=== PATIENT | female | born 1950 | race Caucasian/White ===

== ENCOUNTER → 2016-08-08 | Outpatient (CLI) | payer OTHER ==
[2016-08-08 13:10] LABS: BASO % 0.8 %; BASO ABS # 0.06 K/uL (0-0.2); COMPLETE YES; EOS % 2.1 %; HEMATOCRIT 39.3 % (37-47); IG% 0.4 %; LYMPH % 28.4 %; LYMPH ABS # 2.01 K/uL (1.2-3.4); MEAN CELL VOLUME 97.8 fL (80-100); MEAN CORPUSCULAR HEMOGLOBIN 32.6 pg (25-34); MEAN CORPUSCULAR HGB CONC 33.3 g/dl (32-36); MEAN PLATELET VOLUME 9.9 fL (7.4-10.4); NEUT % 56.3 %; PLATELET COUNT 327 K/uL (130-400); RED BLOOD COUNT 4.02 M/uL (4.2-5.4); WHITE BLOOD COUNT 7.07 K/uL (4.8-10.8)
[2016-08-08 13:23] LABS: CHOLESTEROL/HDL RATIO 2.7
== END | disposition home or self-care (01) ==
LOC: C.LABMFLN 07:35
PROVIDERS: ATTEND Family Medicine
DX: E78.5 Hyperlipidemia, unspecified (principal)

== ENCOUNTER → 2016-11-24 | Outpatient (CLI) | payer OTHER ==
--- NOTE | 2016-11-24 09:21 | DIAGNOSTIC IMAGING REPORT ---
LEFT KNEE 4 VIEWS INCLUDING BILATERAL STANDING AP VIEWS CLINICAL HISTORY: CHRONIC LEFT KNEE PAIN COMPARISON: 03/28/2014 DISCUSSION: There are progressive osteoarthritic changes involving the left knee with marked medial joint compartment narrowing. There are small dorsal patellar spurs. There are medial lateral joint compartment spurs. There are no acute fractures. No destructive lesions are visualized. The joint spaces of the right knee remain within normal limits for age on this single standing AP view. IMPRESSION: Significant progression in the osteoarthritic changes of the left knee with marked medial joint compartment narrowing Electronically signed by: Piero Pulliam M.D. 11/24/2016 9:20 AM Dictated Date/Time: 11/24/2016 9:18 AM
== END | disposition home or self-care (01) ==
LOC: C.RDSM 12:17
PROVIDERS: ATTEND Internal Medicine
DX: M25.562 Pain in left knee (principal)

== ENCOUNTER → 2017-02-13 | Outpatient (CLI) | payer OTHER ==
[2017-02-13 12:58] LABS: BLOOD UREA NITROGEN 12 mg/dl (7-18); BUN/CREATININE RATIO 15.7 (10-20); CALCIUM 9.3 mg/dl (8.5-10.1); CARBON DIOXIDE 28 mmol/L (21-32); CHLORIDE 103 mmol/L (98-107); CREATININE 0.76 mg/dl (0.60-1.20); GLUCOSE 102 mg/dl (70-99); POTASSIUM 4.4 mmol/L (3.5-5.1); SODIUM 139 mmol/L (136-145)
[2017-02-13 13:10] LABS: PHOSPHORUS 2.7 mg/dl (2.5-4.9)
== END | disposition home or self-care (01) ==
LOC: C.LABMFLN 08:32
PROVIDERS: ATTEND Family Medicine
DX: K21.9 Gastro-esophageal reflux disease without esophagitis (principal); E03.9 Hypothyroidism, unspecified; Z01.419 Encounter for gynecological examination (general) (routine) without abnormal findings

== ENCOUNTER → 2017-02-13 | Outpatient (CLI) | payer OTHER | END | disposition home or self-care (01) | LOC: C.PAPS 13:05 | PROVIDERS: ATTEND Family Medicine | DX: Z01.419 Encounter for gynecological examination (general) (routine) without abnormal findings (principal) ==

== ENCOUNTER → 2017-08-17 | Outpatient (CLI) | payer OTHER ==
[2017-08-17 12:52] LABS: BASO % 0.4 %; BASO ABS # 0.02 K/uL (0-0.2); EOS % 2.4 %; EOS ABS # 0.12 K/uL (0-0.5); HEMATOCRIT 39.7 % (37-47); HEMOGLOBIN 13.3 g/dL (12.0-16.0); IG# 0.01 K/uL (0.00-0.02); LYMPH % 40.9 %; LYMPH ABS # 2.08 K/uL (1.2-3.4); MEAN CELL VOLUME 95.2 fL (80-100); MEAN CORPUSCULAR HEMOGLOBIN 31.9 pg (25-34); MEAN CORPUSCULAR HGB CONC 33.5 g/dl (32-36); MEAN PLATELET VOLUME 10.6 fL (7.4-10.4); MONO % 11.2 %; MONO ABS # 0.57 K/uL (0.11-0.59); NEUT % 44.9 %; NEUT ABS # 2.29 K/uL (1.4-6.5); PLATELET COUNT 265 K/uL (130-400); RED CELL DISTRIBUTION WIDTH CV 12.8 % (11.5-14.5); RED CELL DISTRIBUTION WIDTH SD 44.2 fL (36.4-46.3); WHITE BLOOD COUNT 5.09 K/uL (4.8-10.8)
== END | disposition home or self-care (01) ==
LOC: C.LABMFLN 07:10
PROVIDERS: ATTEND Family Medicine
DX: K21.9 Gastro-esophageal reflux disease without esophagitis (principal); E78.5 Hyperlipidemia, unspecified

== ENCOUNTER 2018-07-09 06:25 | Inpatient (IN) ==
--- NOTE | 2018-06-15 16:22 | PAT Medication Instructions ---
Medication Instructions Date of Service June 15, 2018 Home Medications escitalopram oxalate 10 mg PO QAM levothyroxine 125 mcg PO QAM meloxicam 15 mg PO QAM PRN multivitamin 1 tab PO QAM omeprazole 40 mg PO QAM [Calcium 500 + D] 1 tab PO BID ASK your surgeon for instructions meloxicam 15 mg PO QAM PRN DO NOT take the morning of surgery multivitamin 1 tab PO QAM [Calcium 500 + D] 1 tab PO BID Take morning of surgery With a small sip of water, OTHERWISE NOTHING TO EAT OR DRINK AFTER MIDNIGHT: escitalopram oxalate 10 mg PO QAM levothyroxine 125 mcg PO QAM omeprazole 40 mg PO QAM Take evening before surgery [Calcium 500 + D] 1 tab PO BID Other Notes If you have any questions please call us at [phone] or [phone] or [phone] or [phone]
--- NOTE | 2018-06-16 12:41 | Anesthesiology Consultation ---
Date of Service June 16, 2018 Assessment & Plan (1) Encounter for pre-operative examination: *POSSIBLE DIFFICULT AIRWAY BASED ON PHYSICAL EXAM AT [facility]* Chart Review Chart Review: Acceptable Risk for Surgery and Patient seen in Pre Admission Testing Teaching & Discussion Instructed NPO after midnight before surgery, except medications with 15 cc of water. Medication instructions provided according to the [facility] guidelines. History Surgery Operation Date: 07/09/18 09:25 Proposed Procedures p Left Total Knee Arthroplasty - Shaw Chi MD Height/Weight Height: 5 ft 5 in Weight: 93 kg Allergies Allergy/AdvReac Type Severity Reaction Status Date / Time No Known Allergies Allergy Verified 06/07/18 07:58 Medications Home Medications Medication Instructions Recorded Confirmed Last Taken atorvastatin 10 mg PO QAM 02/22/18 06/07/18 05/11/18 escitalopram oxalate 10 mg PO QAM 02/22/18 06/07/18 05/11/18 levothyroxine 125 mcg PO QAM 02/22/18 06/07/18 05/11/18 meloxicam 15 mg PO QAM PRN 02/22/18 06/07/18 03/02/18 08:00 multivitamin 1 tab PO QAM 02/22/18 06/07/18 05/11/18 omeprazole 40 mg PO QAM 02/22/18 06/07/18 05/11/18 calcium carbonate-vitamin D3 1 tab PO BID 06/07/18 06/07/18 Unknown [Calcium 500 + D] Past Medical History Medical History Anxiety Depression GERD (gastroesophageal reflux disease) Hyperlipidemia Hypothyroidism Obesity Osteoarthritis Sleep apnea cpap Past Surgical History Surgical History History of cataract surgery both eyes History of colonoscopy History of removal of cyst left foot Hx of eye surgery left for macular retinal hole Past Anesthesia History No Hx of Anesthesia Complications and No Family Hx of Anesthesia Complications *POSSIBLE DIFFICULT AIRWAY BASED ON PHYSICAL EXAM AT [facility]* History of PONV No Motion Sickness Screening History of Motion Sickness: No Social History Smoking Status: Never smoker Do You Dip or Chew Tobacco: No Hx Alcohol Use: Yes Alcohol type: beer and wine alcohol intake frequency: holidays/special occasions only Hx Substance Use: No substance use type: does not use Exercise / Class Metabolic Activity II 4-5 Yardwork/Stairs/Walk up hill (Denies CP or SOB with stairs) Review of Systems Pt denies any recent chest pain, shortness of breath, palpitations, cough, fever or URI. Physical Exam Vital Signs BP: 146/81 (pt recently evaluated by PCP) P: 70 bpm SPO2: 94% RA T: 98.8 F R: 16 ENMT Mouth: + dentures (partial upper), + dental restorations (3 crowns), + macroglossia and + small oral opening; no chipped teeth and no loose teeth Thyromental Distance: < 3.5 Finger Breadths (2? Difficult to assess 2/2 thick ne ck) Mallampati Class: III Neck + thick neck; neck extension not limited Respiratory normal respiratory effort Auscultation: lungs clear to auscultation bilaterally Cardiovascular Rate/Rhythm: regular rate and regular rhythm Heart Sounds: no murmur Vessels: no carotid bruit Extremities: no edema Testing Electrocardiogram Date: 06/16/18 Findings: + NSR @ (70) Chest X-Ray Date: 06/16/18 Findings: + NAD Laboratory Results 06/16/18 13:02 06/16/18 13:10 Blood Type A Positive 06/16/18 13:02 Antibody Screen NEGATIVE 06/16/18 13:02 PT 10.0 Seconds (9.0-12.0) 06/16/18 13:02 INR 1.0 (0.9-1.1) 06/16/18 13:02 APTT 24.2 Seconds (21.0-31.0) 06/16/18 13:02 Hemoglobin A1c 6.0 % (4.5-5.6) H 06/16/18 13:02 Urine Color Yellow 06/16/18 Unknown Urine Appearance Clear (Clear) 06/16/18 Unknown Urine pH 6.0 (4.5-7.5) 06/16/18 Unknown Ur Specific [place] 1.015 (1.000-1.030) 06/16/18 Unknown Urine Protein Negative (Negative) 06/16/18 Unknown Urine Glucose (UA) Negative (Negative) 06/16/18 Unknown Urine Ketones Negative (Negative) 06/16/18 Unknown Urine Nitrite Negative (Negative) 06/16/18 Unknown Ur Leukocyte Esterase Trace (Negative) H 06/16/18 Unknown Urine WBC (Auto) 5-10 /hpf (0-5) H 06/16/18 Unknown Urine RBC (Auto) 0-4 /hpf (0-4) 06/16/18 Unknown U Hyaline Cast (Auto) 0 /lpf (0-5) 06/16/18 Unknown U Epithel Cells (Auto) >30 /lpf (0-5) H 06/16/18 Unknown Urine Bacteria (Auto) Negative (Negative) 06/16/18 Unknown
--- NOTE | 2018-06-16 13:33 | XRay Report ---
XR chest Pre-admission PA/Lat CLINICAL HISTORY: pat preoperative evaluation COMPARISON STUDY: No previous studies for comparison. FINDINGS: The bones soft tissues and hemidiaphragms are normal. The cardiomediastinal silhouette is n ormal. The lungs are clear. The pulmonary vasculature is normal. IMPRESSION: Negative chest. The above report was generated using voice recognition software. It may contain grammatical, syntax or spelling errors. Electronically signed by: Reji Trejo M.D. 06/16/2018 1:32 PM
[2018-06-16 14:24] LABS: White Blood Count 5.47 K/uL (4.8-10.8)
[2018-06-16 14:25] LABS: Basophils # (auto) 0.02 K/uL (0-0.2); Basophils % (auto) 0.4 %; Eosinophils # (auto) 0.09 K/uL (0-0.5); Eosinophils % (auto) 1.6 %; Hematocrit (blood only) 38.5 % (37-47); Hemoglobin 12.6 g/dL (12.0-16.0); Lymphocytes # (auto) 2.19 K/uL (1.2-3.4); Mean Corpuscular Hgb Conc 32.7 g/dL (32-36); Mean Corpuscular Volume 95.3 fL (80-100); Mean Platelet Volume 10.8 fL (7.4-10.4); Monocytes # (auto) 0.55 K/uL (0.11-0.59); Monocytes % (auto) 10.1 %; Neutrophils # (auto) 2.62 K/uL (1.4-6.5); Neutrophils % (auto) 47.9 %; Platelet Count 270 K/uL (130-400); RDW Coefficient of Variation 12.7 % (11.5-14.5); RDW Standard Deviation 44.6 fL (36.4-46.3); Red Blood Count 4.04 M/uL (4.2-5.4)
[2018-06-16 14:33] LABS: Albumin Level 3.6 gm/dl (3.4-5.0); BUN Creatinine Ratio 20.9 (10-20); Calcium 9.2 mg/dl (8.5-10.1); Creatinine Clr Calc Pharmacy 78.7 ml/min; Est GFR (African American) 92.8; Potassium 4.4 mmol/L (3.5-5.1)
[2018-06-16 14:38] LABS: Appearance Urine Clear (Clear); Bacteria Urine Automated Negative (Negative); Bilirubin Urine Negative (Negative); Blood Urine Negative (Negative); Cast Urine Automated 0 /lpf (0-5); Color Urine Yellow; Epithelial Cell Urine Auto >30 /lpf (0-5); Glucose Urine UA Negative (Negative); Ketones Urine Negative (Negative); Leukocyte Esterase Urine Trace (Negative); Nitrite Urine Negative (Negative); Protein Urine Negative (Negative); RBC Urine Automated 0-4 /hpf (0-4); Specific Gravity Urine 1.015 (1.000-1.030); Urobilinogen Urine Negative (Negative)
[2018-06-16 14:40] LABS: Partial Thromboplastin Ratio 0.9; Partial Thromboplastin Time 24.2 Seconds (21.0-31.0)
[2018-06-16 15:11] LABS: Estimated Average Glucose 126 mg/dl
--- NOTE | 2018-07-04 19:16 | History & Physical Report ---
Date of Service July 04, 2018 Assessment & Plan (1) Primary osteoarthritis of left knee: Patient has failed conservative measures as above. Treatment options were discussed. Risks, benefits and alternatives to surgery including but not limited to infection, DVT, pain, stiffness, need for revision surgery, damage to blood vessels, damage to nerves, PE, , were discussed with the patient and they wish to proceed. Plan will be for left total knee arthroplasty. All questions were answered. Plan will be for aspirin 81mg BID x30 days for DVT prophylaxis. She would like to go to [place] upon discharge from the hospital. History of Present Illness Chief Complaint: Left knee pain Primary Care Provider: Jenise Mackay MD 67 year old female with PMHx significant for high cholesterol, GERD, KATHRYN with CPAP, hypothyroidism with complaint of ongoing left knee pain. She has failed conservative measures including NSAIDs, cortisone injection, and most recently hyaluronic acid injections. Her pain is interfering with her daily activities. She would like to proceed with left knee replacement. Patient denies headaches, sweats, fevers, chills, double vision, blurred vision, cough, sore throat, dysphagia, chest pain, sob, wheezing, n/v/d/c, numbness, tingling, fatigue, urinary symptoms, mood disorders. ROS positive for left knee pain and stiffness. Allergies Allergy/AdvReac Type Severity Reaction Status Date / Time No Known Allergies Allergy Verified 06/07/18 07:58 Home Medications Home Medications Medication Instructions Recorded Confirmed Type atorvastatin 10 mg PO QAM 02/22/18 06/07/18 History escitalopram oxalate 10 mg PO QAM 02/22/18 06/07/18 History levothyroxine 125 mcg PO QAM 02/22/18 06/07/18 History meloxicam 15 mg PO QAM PRN 02/22/18 06/07/18 History multivitamin 1 tab PO QAM 02/22/18 06/07/18 History omeprazole 40 mg PO QAM 02/22/18 06/07/18 History calcium carbonate-vitamin D3 1 tab PO BID 06/07/18 06/07/18 History [Calcium 500 + D] Past Med/Surg History Medical History Anxiety Depression GERD (gastroesophageal reflux disease) Hyperlipidemia Hypothyroidism Obesity Osteoarthritis Sleep apnea cpap Surgical History History of cataract surgery both eyes History of colonoscopy History of removal of cyst left foot Hx of eye surgery left for macular retinal hole Social History Preferred Language: Occitan Communication Ability: Effective Beliefs That Will Affect Care: None Current Living Situation: Spouse Other Information That Helps Us Care for You: No Feels Safe at Home: Yes Safety Concerns: Feels Safe At This Time Smoking Status: Never smoker Hx Alcohol Use: Yes Hx Substance Use: No Review of Systems All systems reviewed & are unremarkable except as noted in HPI & below Physical Exam Constitutional: well developed and well nourished; no acute distress Eyes: PERRL, conjunctivae normal, anicteric sclerae ENMT: external ear and nose normal, oropharynx normal Neck: trachea midline, no thyromegaly Respiratory: normal respiratory effort, lungs clear to auscultation Cardiovascular: RRR, no murmur, no edema Musculoskeletal: Left knee: ROM 0-130 with crepitus, tenderness to medial joint line, stable to valgus and varus stress Skin: no rashes, warm and dry Neurologic: patellar DTR's 2+ bilat, sensation intact Psychiatric: A+Ox3, euthymic affect Results & Data Laboratory Results Lab Results 06/16/18 06/16/18 06/16/18 Range/Units 13:02 13:02 13:02 WBC 5.47 (4.8-10.8) K/uL RBC 4.04 L (4.2-5.4) M/uL Hgb 12.6 (12.0-16.0) g/dL Hct 38.5 (37-47) % MCV 95.3 (80-100) fL MCH 31.2 (25-34) pg MCHC 32.7 (32-36) g/dL RDW Std Deviation 44.6 (36.4-46.3) fL RDW Coeff of Lori 12.7 (11.5-14.5) % Plt Count 270 (130-400) K/uL MPV 10.8 H (7.4-10.4) fL Immature Gran % (Auto) 0.0 % Neut % (Auto) 47.9 % Lymph % (Auto) 40.0 % [place] % (Auto) 10.1 % Eos % (Auto) 1.6 % Baso % (Auto) 0.4 % Immature Gran # (Auto) 0.00 (0.00-0.02) K/uL Neut # (Auto) 2.62 (1.4-6.5) K/uL Lymph # (Auto) 2.19 (1.2-3.4) K/uL [place] # (Auto) 0.55 (0.11-0.59) K/uL Eos # (Auto) 0.09 (0-0.5) K/uL Baso # (Auto) 0.02 (0-0.2) K/uL PT 10.0 (9.0-12.0) Seconds INR 1.0 (0.9-1.1) APTT 24.2 (21.0-31.0) Seconds PTT Ratio 0.9 Sodium (136-145) mmol/L Potassium (3.5-5.1) mmol/L Chloride (98-107) mmol/L Carbon Dioxide (21-32) mmol/L Anion Gap (3-11) BUN (7-18) mg/dl Creatinine (0.6-1.2) mg/dl Est Cr Clr Drug Dosing ml/min Est GFR ( Amer) Est GFR (Non-Af Amer) BUN/Creatinine Ratio (10-20) Glucose (70-99) mg/dl Estimat Average Glucose 126 mg/dl Hemoglobin A1c 6.0 H (4.5-5.6) % Calcium (8.5-10.1) mg/dl Albumin (3.4-5.0) gm/dl Urine Color Urine Appearance (Clear) Urine pH (4.5-7.5) Ur Specific [place] (1.000-1.030) Urine Protein (Negative) Urine Glucose (UA) (Negative) Urine Ketones (Negative) Urine Blood (Negative) Urine Nitrite (Negative) Urine Bilirubin (Negative) Urine Urobilinogen (Negative) Ur Leukocyte Esterase (Negative) Urine WBC (Auto) (0-5) /hpf Urine RBC (Auto) (0-4) /hpf U Hyaline Cast (Auto) (0-5) /lpf U Epithel Cells (Auto) (0-5) /lpf Urine Bacteria (Auto) (Negative) Blood Type Antibody Screen 06/16/18 06/16/1806/16/19 Range/Units 13:02 13:10 Unknown WBC (4.8-10.8) K/uL RBC (4.2-5.4) M/uL Hgb (12.0-16.0) g/dL Hct (37-47) % MCV (80-100) fL MCH (25-34) pg MCHC (32-36) g/dL RDW Std Deviation (36.4-46.3) fL RDW Coeff of Lori (11.5-14.5) % Plt Count (130-400) K/uL MPV (7.4-10.4) fL Immature Gran % (Auto) % Neut % (Auto) % Lymph % (Auto) % [place] % (Auto) % Eos % (Auto) % Baso % (Auto) % Immature Gran # (Auto) (0.00-0.02) K/uL Neut # (Auto) (1.4-6.5) K/uL Lymph # (Auto) (1.2-3.4) K/uL [place] # (Auto) (0.11-0.59) K/uL Eos # (Auto) (0-0.5) K/uL Baso # (Auto) (0-0.2) K/uL PT (9.0-12.0) Seconds INR (0.9-1.1) APTT (21.0-31.0) Seconds PTT Ratio Sodium 139 (136-145) mmol/L Potassium 4.4 (3.5-5.1) mmol/L Chloride 107 (98-107) mmol/L Carbon Dioxide 27 (21-32) mmol/L Anion Gap 5.0 (3-11) BUN 16 (7-18) mg/dl Creatinine 0.76 (0.6-1.2) mg/dl Est Cr Clr Drug Dosing 78.7 ml/min Est GFR ( Amer) 92.8 Est GFR (Non-Af Amer) 80.0 BUN/Creatinine Ratio 20.9 H (10-20) Glucose 119 H (70-99) mg/dl Estimat Average Glucose mg/dl Hemoglobin A1c (4.5-5.6) % Calcium 9.2 (8.5-10.1) mg/dl Albumin 3.6 (3.4-5.0) gm/dl Urine Color Yellow Urine Appearance Clear (Clear) Urine pH 6.0 (4.5-7.5) Ur Specific [place] 1.015 (1.000-1.030) Urine Protein Negative (Negative) Urine Glucose (UA) Negative (Negative) Urine Ketones Negative (Negative) Urine Blood Negative (Negative) Urine Nitrite Negative (Negative) Urine Bilirubin Negative (Negative) Urine Urobilinogen Negative (Negative) Ur Leukocyte Esterase Trace H (Negative) Urine WBC (Auto) 5-10 H (0-5) /hpf Urine RBC (Auto) 0-4 (0-4) /hpf U Hyaline Cast (Auto) 0 (0-5) /lpf U Epithel Cells (Auto) >30 H (0-5) /lpf Urine Bacteria (Auto) Negative (Negative) Blood Type A Positive Antibody Screen NEGATIVE Diagnostic Findings Left knee radiographs: Essentially [id number] medial compartment with osteophyte formation medial femoral condyle and medial tibial plateau. Joint space narrowing and spurring patellofemoral joint.
[~2018-07-09 06:25] MED LIST: ACETAMINOPHEN 500 MG TAB PO SCH; CEFAZOLIN 2000MG 2,000 MG/15 ML SYR IV SCH; CeleBREX 200 MG CAP PO SCH; GABAPENTIN 300 MG PO SCH; LR 500ML BOLUS, THEN 15ML/HR IV SCH; METOCLOPRAMIDE HCL 10 MG TABLET PO SCH; OXYCODONE HCL 10 MG TABCR (OXYCONTIN) PO SCH; ROPIVACAINE 0.5% HCL/PF 150 MG, BUPIVACAINE 0.5% MPF 30 ML, EPINEPHrine 30MG/30ML (OR U... INFIL SCH; TRAMADOL HCL 50 MG TABLET PO SCH; TRANEXAMIC ACID 1,000 MG **IV Pre-op IV SCH; dexAMETHasone 4 MG TAB PO SCH
[2018-07-09] MEDS ORDERED: TRANEXAMIC ACID 1,000 MG **IV Intra-op IV SCH (06:30)
--- NOTE | 2018-07-09 06:40 | History & Physical Bridge Note ---
Date of Service July 09, 2018 History & Physical Bridge Note I have examined the patient, reviewed the History & Physical and in the interval since the performance of the History & Physical I have noted the following changes of clinical significance: no changes noted
[2018-07-09] MEDS ORDERED: ROPIVACAINE 0.5% 5 MG/ML 30 ML VIAL ONE (07:16)
[2018-07-09] MEDS ORDERED: BUPIVACAINE 0.5 % 5 MG/1 ML PF 10ML VIAL ONE (07:16)
[2018-07-09] MEDS ORDERED: ACETAMINOPHEN 500 MG TAB ONE (07:26)
[2018-07-09] MEDS ORDERED: GABAPENTIN 300 MG CAP ONE (07:27)
[2018-07-09] MEDS ORDERED: CeleBREX 200 MG CAP ONE (07:27)
[2018-07-09] MEDS ORDERED: dexAMETHasone 4 MG TAB PO ONE (07:27)
[2018-07-09] MEDS ORDERED: METOCLOPRAMIDE HCL 10 MG TABLET ONE (07:28)
[2018-07-09] MEDS ORDERED: TRAMADOL HCL 50 MG TABLET ONE (07:28)
[2018-07-09] MEDS ORDERED: OXYCODONE HCL 10 MG TABCR (OXYCONTIN) ONE (07:29)
[2018-07-09] MEDS ORDERED: PROPOFOL IV EMULSION 10 MG/ML 20 ML VIAL IV ONE (07:57)
[2018-07-09] MEDS ORDERED: MIDAZOLAM HCL 1 MG/ML 2ML VIAL ONE (07:58)
[2018-07-09] MEDS ORDERED: fentaNYL citrate 100 MCG/2 ML VIAL ONE (07:58)
[2018-07-09] MEDS ORDERED: POVIDONE-IODINE OP SOLN 30 ML BTL ONE (09:38)
[2018-07-09] MEDS ORDERED: BACITRACIN INJ 50,000 UNIT VIAL ONE (09:38)
--- NOTE | 2018-07-09 11:01 | Operative Report ---
Post Operative Report Pre & Post Diagnosis Operation Date: 07/09/18 09:10 Pre-Op Diagnosis: Left Knee Osteoarthritis Post-Op Diagnosis: Left Knee Osteoarthritis Procedure Operation Date: 07/09/18 09:10 Actual Procedures p Left Total Knee Arthroplasty(Left) - Shaw Chi MD Surgeon Shaw Chi MD Wan Support Specialist Lupillo Maradiaga PA-C Estimated Blood Loss 20 Findings Consistent with Post-Op Diagnosis Specimens Bone and tissue Drains 2 Hemovac Anesthesia Type Spinal MAC Complications none Disposition Accompanied Patient To Recovery: No Disposition: Recovery Room Indications The patient is a 67-year-old female long-standing arthritic change of the left knee. She has failed conservative measures including injection, anti- inflammatories, rehab. She wishes to proceed with a left total knee arthroplasty. Description of Procedure Risks benefits and alternatives of surgery including but not limited to infection, DVT, pain, stiffness, need for surgery, damage to blood vessels, damage to nerves or risks of anesthesia were discussed with the patient and they wished to proceed. The patient was identified and the laterality was confirmed and marked. They received a preoperative antibiotic as well as a spinal anesthetic and an abductor canal block. A well-padded tourniquet was applied and then the limb was prepped and draped in standard manner with ChloraPrep. The limb was exsanguinated and the tourniquet was inflated. I made a standard anterior incision. I sharply incised the skin then utilized Bovie electrocautery to achieve hemostasis. I made a medial parapatellar arthrotomy and mobilized the patella laterally. I then excised the anterior horns of the medial and lateral meniscus as well as the infrapatellar fat pad. I elevated a portion of the MCL off of the tibia. I then pinned into place a patient-matched distal femoral cutting guide and made my distal femoral resection. I then pinned into place the 5 in 1 femoral cutting guide. I made my anterior, posterior and chamfer cuts. I then excised the cruciates and the remaining portions of the menisci. I then pinned into place a patient-matched tibial cutting guide and made my tibial resection. I then pinned into place the tibial plate a utilizing alignment jina to confirm rotation. I then cut for the post. Utilizing a lamina patron attendant and I then removed posterior osteophytes off the femur. I then placed a trial femur into position and cut for the trochlear component. I then sequentially trialed to size the polyethylene until there was good soft tissue balancing and range of motion. I then prepared the patella with a freehand cut utilizing sagittal saw. I sized and drilled for the patella. There was some lateral tracking of the patella. A small lateral release was required. All the trial components were removed. The deep tissues were anesthetized with an ortho mix solution. Then with Simplex HV with gentamicin cement, I cemented my definitive components. Definitive components, Rosenbaum and Nephew Ryan 2: Femur 5 Tibia 4 Poly 9 Patella 32 oval A betadine soak was performed. A deep drain was placed. The arthrotomy was closed with interrupted #1 Vicryl suture subcutaneous tissue was closed with interrupted 2-0 Vicryl suture. The skin was closed with with hunter. An Acticoat and Rashad dressing were placed. Sterile dressings were applied. All needle and sponge counts were correct at the end of the procedure patient was transferred to the PACU in stable condition without apparent complication. The PA-C was necessary for assistance with procedure for assistance in positioning, prepping, draping, retraction and closure. I attest to the content of the Intraoperative Record and any orders documented therein. Any exceptions are noted below.
[2018-07-09] MEDS ORDERED: MAGNESIUM HYDROXIDE SUSP 30 ML UDC PO PRN (11:52)
[2018-07-09] MEDS ORDERED: NALOXONE HCL 0.4 MG/1 ML VIAL/CARP IV PRN (11:52)
[2018-07-09] MEDS ORDERED: ONDANSETRON INJ 2 MG/ML 2 ML VIAL IV PRN (11:52)
[2018-07-09] MEDS ORDERED: BISACODYL 10 MG SUPP PR PRN (11:52)
[2018-07-09] MEDS ORDERED: METOCLOPRAMIDE HCL INJ 5 MG/ML 2 ML VIAL IV PRN (11:52)
[2018-07-09] MEDS ORDERED: HYDROmorphone INJ 0.5 MG/0.5 ML SYR IV PRN (11:52)
--- NOTE | 2018-07-09 12:26 | XRay Report ---
XR knee LT 2V routine CLINICAL HISTORY: Surgical Post Op postoperative evaluation COMPARISON: None. DISCUSSION: Anatomic alignment post total left knee arthroplasty. Good contact between prosthetic and underlying bone. Expected soft tissue postoperative change. IMPRESSION: Anatomic alignment post total left knee arthroplasty. The above report was generated using voice recognition software. It may contain grammatical, syntax or spelling errors. Electronically signed by: Reji Trejo M.D. 07/09/2018 12:25 PM
--- NOTE | 2018-07-09 12:30 | Anesthesiology Progress Note ---
Date of Service July 09, 2018 Anesthesia Post Procedure Vital Signs Vital Signs: Temp Pulse Pulse Resp BP Pulse Ox 07/09/18 12:19 37.3 C 93 H 22 140/76 98 07/09/18 12:10 97 H 17 148/71 H 96 07/09/18 12:00 95 H 17 145/69 H 95 07/09/18 11:50 37.6 C H 102 H 18 161/76 H 95 07/09/18 06:50 36.9 C 78 16 181/109 H 96 Notes Mental Status: alert / awake / arousable and participated in evaluation Nausea / Vomiting: adequately controlled Pain: adequately controlled Airway Patency, RR, SpO2: stable & adequate BP & HR: stable & adequate Hydration State: stable & adequate Neuraxial Anesthesia: was administered and sensory block is resolving Anesthetic Complications: no major complications apparent
[2018-07-09] MEDS: SODIUM CHLORIDE 0.9% 1000ML 1,000 ML IV SCH ×2 (13:11→22:45)
[2018-07-09] MEDS: ACETAMINOPHEN 500 MG TAB PO SCH (16:07)
[2018-07-09] MEDS: OXYCODONE HCL IR 5 MG TAB (IMMEDIATE RELEASE) PO PRN ×2 (17:59→22:13)
[2018-07-09] MEDS: CEFAZOLIN 2000MG 2,000 MG/15 ML SYR IV SCH (18:00)
[2018-07-09] MEDS: CeleBREX 200 MG CAP PO SCH (21:00)
[2018-07-09] MEDS: CALCIUM 600MG + VIT D 400 IU TAB PO SCH (21:00)
[2018-07-09] MEDS: SENNA 8.6 MG TAB PO SCH (21:00)
[2018-07-09] MEDS: ASPIRIN 81 MG ECTAB PO SCH (21:00)
[2018-07-09] MEDS: DOCUSATE SODIUM 100 MG CAP PO SCH (21:01)
[2018-07-10] MEDS: CEFAZOLIN 2000MG 2,000 MG/15 ML SYR IV SCH (01:46)
[2018-07-10] MEDS: ACETAMINOPHEN 500 MG TAB PO SCH ×3 (05:48→22:08)
[2018-07-10] MEDS: LEVOTHYROXINE SODIUM 125 MCG TABLET PO SCH (05:48)
[2018-07-10 06:02] LABS: Hematocrit (blood only) 31.5 % (37-47); Hemoglobin 10.6 g/dL (12.0-16.0); Mean Corpuscular Hgb Conc 33.7 g/dL (32-36); Mean Corpuscular Volume 94.3 fL (80-100); Platelet Count 236 K/uL (130-400); RDW Coefficient of Variation 12.6 % (11.5-14.5); RDW Standard Deviation 43.6 fL (36.4-46.3); Red Blood Count 3.34 M/uL (4.2-5.4); White Blood Count 16.01 K/uL (4.8-10.8)
[2018-07-10 06:33] LABS: BUN Creatinine Ratio 30.4 (10-20); Calcium 8.9 mg/dl (8.5-10.1); Creatinine Clr Calc Pharmacy 83.1 ml/min; Est GFR (Non-African American) 85.4; Potassium 3.9 mmol/L (3.5-5.1)
--- NOTE | 2018-07-10 08:25 | Orthopedic Progress Note ---
Date of Service July 10, 2018 Assessment & Plan (1) Primary osteoarthritis of left knee: POD #1, Left TKA PT/ OT D/C planning- [facility] likely Thursday. DVT proph- ASA Subjective POD #1, doing well, denies sob, cp, n/v, pain controlled well. Physical Exam Vital Signs (Past 24 Hours): Last Vital Signs Temp 36.9 C 07/10/18 07:09 Pulse 72 07/10/18 07:09 Resp 18 07/10/18 07:09 BP 149/71 H 07/10/18 07:09 Pulse Ox 94 07/10/18 07:09 Physical Exam: LEft knee dressings c/d/i, no drainage, toes and ankle mobile, no calf tenderness, A&Ox3.
[2018-07-10] MEDS: OXYCODONE HCL IR 5 MG TAB (IMMEDIATE RELEASE) PO PRN ×4 (08:57→23:11)
[2018-07-10] MEDS: LISINOPRIL 5 MG TAB PO SCH (08:58)
[2018-07-10] MEDS: ESCITALOPRAM OXALATE 10 MG TAB PO SCH (08:58)
[2018-07-10] MEDS: ATORVASTATIN 10 MG TAB PO SCH (08:58)
[2018-07-10] MEDS: CeleBREX 200 MG CAP PO SCH ×2 (08:58→20:53)
[2018-07-10] MEDS: PANTOprazole 40 MG TAB PO SCH (08:58)
[2018-07-10] MEDS: MULTIVITAMIN TAB PO SCH (08:59)
[2018-07-10] MEDS: DOCUSATE SODIUM 100 MG CAP PO SCH ×2 (08:59→20:53)
[2018-07-10] MEDS: CALCIUM 600MG + VIT D 400 IU TAB PO SCH ×2 (08:59→20:53)
[2018-07-10] MEDS: ASPIRIN 81 MG ECTAB PO SCH ×2 (08:59→20:52)
[2018-07-10] MEDS ORDERED: MULTIVITAMIN TAB PO SCH (09:00)
--- NOTE | 2018-07-10 13:24 | Anesthesiology Progress Note ---
Date of Service July 10, 2018 Anesthesia Post Procedure Vital Signs Vital Signs: Temp Pulse Resp BP Pulse Ox 07/10/18 10:51 37.1 C 69 18 158/72 H 98 07/10/18 07:09 36.9 C 72 18 149/71 H 94 07/10/18 03:50 36.6 C 81 15 128/64 95 07/09/18 23:39 36.7 C 71 16 136/70 96 07/09/18 15:44 36.7 C 88 16 151/78 H 94 07/09/18 14:53 92 H 18 160/87 H 95 07/09/18 13:36 36.7 C 105 H 18 157/83 H 93 Pain Intensity Left Knee: Pain Intensity: 2 Notes Mental Status: alert / awake / arousable Patient Amnestic to Procedure: Yes Nausea / Vomiting: adequately controlled Pain: adequately controlled Airway Patency, RR, SpO2: stable & adequate BP & HR: stable & adequate Hydration State: stable & adequate Neuraxial Anesthesia: was administered and sensory block resolved Anesthetic Complications: no major complications apparent and Pt Satisfied with anesthetic care
[2018-07-10] MEDS: SENNA 8.6 MG TAB PO SCH (20:53)
[2018-07-11] MEDS: ACETAMINOPHEN 500 MG TAB PO SCH ×3 (05:35→21:24)
[2018-07-11] MEDS: LEVOTHYROXINE SODIUM 125 MCG TABLET PO SCH (05:35)
[2018-07-11] MEDS: OXYCODONE HCL IR 5 MG TAB (IMMEDIATE RELEASE) PO PRN ×4 (08:24→23:32)
[2018-07-11] MEDS: DOCUSATE SODIUM 100 MG CAP PO SCH ×2 (08:25→20:51)
[2018-07-11] MEDS: CALCIUM 600MG + VIT D 400 IU TAB PO SCH ×2 (08:25→20:51)
[2018-07-11] MEDS: PANTOprazole 40 MG TAB PO SCH (08:25)
[2018-07-11] MEDS: MULTIVITAMIN TAB PO SCH (08:25)
[2018-07-11] MEDS: ESCITALOPRAM OXALATE 10 MG TAB PO SCH (08:25)
[2018-07-11] MEDS: ATORVASTATIN 10 MG TAB PO SCH (08:26)
[2018-07-11] MEDS: LISINOPRIL 5 MG TAB PO SCH (08:26)
[2018-07-11] MEDS: CeleBREX 200 MG CAP PO SCH ×2 (08:26→20:51)
[2018-07-11] MEDS: ASPIRIN 81 MG ECTAB PO SCH ×2 (08:26→20:51)
--- NOTE | 2018-07-11 08:30 | Orthopedic Progress Note ---
Date of Service July 11, 2018 Assessment & Plan (1) Primary osteoarthritis of left knee: POD #2, Left TKA PT/ OT D/C planning- [place] likely Thursday. DVT proph- ASA Uncontrolled hypertension- will consult medicine to adjust BP meds Subjective POD #2, doing well, denies sob, cp, n/v, pain controlled well. BP been running high Physical Exam Vital Signs (Past 24 Hours): Last Vital Signs Temp 37.0 C 07/11/18 07:09 Pulse 77 07/11/18 07:09 Resp 14 07/11/18 07:09 BP 167/79 H 07/11/18 07:09 Pulse Ox 93 07/11/18 07:09 Physical Exam: Left knee wound vac in tact, toes and ankle mobile, no calf tenderness, no drainage, A&Ox3.
--- NOTE | 2018-07-11 10:54 | Consultation ---
Date of Consultation July 11, 2018 Assessment & Plan (1) Essential (primary) hypertension: Patient had pre-HTN for several years, then was finally placed on BP meds about 3-4 weeks ago by her PCP. She states office readings were in the 160s. I believe she is simply not on enough BP meds given the low dose of the KADIE. Will increase the lisinopril to 10mg now and follow her response. Suspect she will likely need further dose adjustments and/or a second agent. Present on Admission?: Yes (2) Hypothyroidism: Continue synthroid. Consider TSH in am. Present on Admission?: Yes (3) Acute blood loss anemia: Mild - 2 gram drop from baseline. Consider ferrous sulfate supplementation. Repeat H/H in am. Present on Admission?: Yes (4) Prediabetes: a1c 6%. will ask dietary to see to give nutritional information prior to d/c. (5) KATHRYN (obstructive sleep apnea): cont CPAP HS (6) Mixed hyperlipidemia: continue statin therapy (7) Obesity (BMI 30-39.9): BMI 34 weight loss is needed hopefully with her knee being fixed she can be more active (8) Abnormal EKG: LVH by voltage criteria present. 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 due to long-standing KATHRYN?? I recommended outpatient echo to assess her cardiac function, chamber sizes, etc. (9) DVT prophylaxis: asa 81mg BID Thank you for the consult. Our team will follow with you. History of Present Illness Reason for Consultation: uncontrolled HTN Requesting Physician: Shaw Chi MD Attending Physician: Shaw Chi MD History of Present Illness Pleasant 67yo female with newly diagnosed HTN about 1 month ago - on BP meds since then - along with hypothyroidism, KATHRYN on CPAP, and hyperlipidemia - who presented for elective left TKR earlier this stay. She has been recovering well and has had a rather unremarkable post-op course. Her course has been marked by uncontrolled HTN however. She does report pain in her left knee especially with activity. Denies chest pain, dyspnea, abd pain, nausea, or emesis. Has had bowel movement and is passing flatus. Complaint with CPAP during the stay. Allergies Allergy/AdvReac Type Severity Reaction Status Date / Time No Known Allergies Allergy Verified 07/09/18 06:47 Home Medications Home Medications Medication Instructions Recorded Confirmed Type atorvastatin 10 mg PO QAM 02/22/18 07/09/18 History escitalopram oxalate 10 mg PO QAM 02/22/18 07/09/18 History levothyroxine 125 mcg PO QAM 02/22/18 07/09/18 History meloxicam 15 mg PO QAM PRN 02/22/18 07/09/18 History multivitamin 1 tab PO QAM 02/22/18 07/09/18 History omeprazole 40 mg PO QAM 02/22/18 07/09/18 History calcium carbonate-vitamin D3 1 tab PO BID 06/07/18 07/09/18 History [Calcium 500 + D] lisinopril 5 mg PO QAM 07/06/18 07/09/18 History Patient History Medical History Anxiety Depression GERD (gastroesophageal reflux disease) Hyperlipidemia Hypothyroidism Obesity Osteoarthritis Sleep apnea cpap Surgical History History of cataract surgery both eyes History of colonoscopy History of removal of cyst left foot Hx of eye surgery left for macular retinal hole Social History Communication Ability: Effective Beliefs That Will Affect Care: None marital status: marital status details: 2 children Current Living Situation: Spouse current occupational status: retired Other Information That Helps Us Care for You: No other: bilingual secretary for [employer] Feels Safe at Home: Yes Safety Concerns: Feels Safe At This Time Smoking Status: Never smoker Hx Alcohol Use: Yes Hx Substance Use: No Review of Systems Constitutional: no fever, no chills, no fatigue, no anorexia, no weight loss and no weight gain Eyes: no worsening vision Ear, Nose, Mouth, Throat: no nasal congestion, no sore throat and no dysphagia Respiratory: no cough and no dyspnea Cardiovascular: no chest pain Gastrointestinal: no abdominal pain, no nausea, no vomiting and no constipation Genitourinary (Female): no dysuria Musculoskeletal: + joint pain (left knee only) Integumentary: no rash Neurologic: no paralysis and no numbness Psychiatric: no depression and no anxiety denies diabetes Hematologic / Lymphatic: no easy bleeding Physical Exam Vital Signs (Past 24 Hours): Last Vital Signs Temp 37.0 C 07/11/18 07:09 Pulse 77 07/11/18 07:09 Resp 14 07/11/18 07:09 BP 167/79 H 07/11/18 07:09 Pulse Ox 93 07/11/18 07:09 Constitutional: well developed, well nourished and + obese; no acute distress and no altered mental status Eyes: PERRL ENMT: external ear and nose normal, oropharynx normal Neck: trachea midline, no thyromegaly Respiratory: normal respiratory effort, lungs clear to auscultation Cardiovascular: Rate/Rhythm: regular rate and regular rhythm Heart Sounds: normal S1 and normal S2; no murmur Vessels: posterior tibial pulses present and dorsalis pedis pulses present; no JVD Extremities: + pedal edema (1+ left foot; none on right) Gastrointestinal (Abdomen): normal bowel sounds, soft, nontender, no hepatosplenomegaly Musculoskeletal: left knee with moderate swelling; dressings intact; drain in place Skin: no rashes, warm and dry Neurologic: deep tendon reflexes 2+ bilaterally and moves all extremities; no focal motor deficits Psychiatric: A+Ox3, euthymic affect Lymphatic: no cervical lymphadenopathy Results & Data Laboratory Results Creatinine 0.7 on 07/10/18 Hemoglobin 10.6 on 07/10/18 hemoglobin a1c 6% 06/16/18 Diagnostic Findings EKG - NSR, LVH, large R wave V1 (RVH??); normal axis however (1) Hypothyroidism Hypothyroidism type: acquired Qualified Code(s): E03.9 - Hypothyroidism, unspecified
[2018-07-11] MEDS ORDERED: LISINOPRIL 5 MG TAB PO ONE (11:20)
[2018-07-11] MEDS: SENNA 8.6 MG TAB PO SCH (20:51)
[2018-07-12] MEDS: ACETAMINOPHEN 500 MG TAB PO SCH (05:43)
[2018-07-12] MEDS: LEVOTHYROXINE SODIUM 125 MCG TABLET PO SCH (05:43)
[2018-07-12 05:48] LABS: Hematocrit (blood only) 30.2 % (37-47); Hemoglobin 9.9 g/dL (12.0-16.0)
[2018-07-12 06:17] LABS: BUN Creatinine Ratio 20.6 (10-20); Calcium 8.7 mg/dl (8.5-10.1); Creatinine Clr Calc Pharmacy 80.9 ml/min; Est GFR (African American) 95.8; Est GFR (Non-African American) 82.7
--- NOTE | 2018-07-12 07:15 | Orthopedic Progress Note ---
Date of Service July 12, 2018 Assessment & Plan (1) Primary osteoarthritis of left knee: POD #3, Left TKA PT/ OT D/C planning- [place] likely today if okay with medicine. DVT proph- ASA Uncontrolled hypertension-medicine consulted. Lisinopril increased to 10mg, may need a second agent per medicine. Subjective POD #3, doing well, denies sob, cp, n/v, pain controlled well. BP been running high. Lisinopril was increased to 10mg yesterday, may need a second agent per medicine. Physical Exam Vital Signs (Past 24 Hours): Last Vital Signs Temp 36.7 C 07/12/18 06:57 Pulse 74 07/12/18 06:57 Resp 18 07/12/18 06:57 BP 180/78 H 07/12/18 06:57 Pulse Ox 96 07/12/18 06:57 Physical Exam: FATIMAH in place, c/d/i. No calf tenderness. Toes are mobile. N/V status and sensation intact
[2018-07-12] MEDS: ASPIRIN 81 MG ECTAB PO SCH (08:31)
[2018-07-12] MEDS: CeleBREX 200 MG CAP PO SCH (08:31)
[2018-07-12] MEDS: CALCIUM 600MG + VIT D 400 IU TAB PO SCH (08:31)
[2018-07-12] MEDS: PANTOprazole 40 MG TAB PO SCH (08:31)
[2018-07-12] MEDS: ESCITALOPRAM OXALATE 10 MG TAB PO SCH (08:31)
[2018-07-12] MEDS: ATORVASTATIN 10 MG TAB PO SCH (08:31)
[2018-07-12] MEDS: DOCUSATE SODIUM 100 MG CAP PO SCH (08:31)
[2018-07-12] MEDS: OXYCODONE HCL IR 5 MG TAB (IMMEDIATE RELEASE) PO PRN ×2 (08:33→12:15)
[2018-07-12] MEDS ORDERED: LISINOPRIL 10 MG TAB PO SCH (09:00)
[2018-07-12] MEDS ORDERED: hydroCHLOROthiazide 25 MG TAB PO SCH (09:15)
[2018-07-12] MEDS: MULTIVITAMIN TAB PO SCH (09:36)
--- NOTE | 2018-07-12 10:22 | Hospitalist Progress Note ---
Date of Service July 12, 2018 Assessment & Plan (1) Primary osteoarthritis of left knee: - S/p right TKA, POD#3. - Pain control and DVT ppx per primary team. - Discharge to [place] this afternoon. (2) Essential (primary) hypertension: - Pt. was placed on Lisinopril 5 mg daily by PCP ~1 month ago. - BP has remained elevated during this admission -- SBP 160-180's. - Increased Lisinopril to 10 mg daily on 07/11/18 with minimal improvement. - Will add low dose HCTZ 12.5 mg daily prior to discharge. - Will need BMP to monitor renal function and electrolytes in 5-7 days -- added to discharge instructions. (3) Hypothyroidism: - Continue Synthroid 125 mcg daily. - TSH was WNL during this admission. (4) Acute blood loss anemia: - Likely related to post op bleeding and IV fluids. - Hemoglobin decreased to 9.9 this morning. - Consider monitoring level as outpatient. (5) Prediabetes: - Hgb A1C was 6%. - Dietary consulted for nutritional information. - Encouraged weight loss and exercise. (6) KATHRYN (obstructive sleep apnea): - CPAP qhs. (7) Mixed hyperlipidemia: - Continue atorvastatin 10 mg qAM. (8) Obesity (BMI 30-39.9): - BMI 34 - Encouraged physical activity, weight loss and healthy diet. (9) Abnormal EKG: - LVH by voltage criteria present; also with large R wave in V1 -- concern for RVH. - Will need outpatient echo to asses cardiac function. (10) DVT prophylaxis: - Aspirin 81 mg BID. Dispo: Will sign off. Pt. stable for discharge to [place] this afternoon. Supervising Physician Co-Signing Physician Notes PA Supervision Note: I personally saw and examined the patient. I verified all dougherty points and agree with KRISTINA Garcia with the following exceptions and/or additions: Pt doing very well. No LYNN, lightheadedness, no CP or SOB, no nausea, is nury po. Pain controlled in knee. BPs running high. Vitals reviewed NAD AAOx3 RRR no mgr CTAB no wcr Ext no edema 67 yo female here for R TKA with HTN uncontrolled. Add on HCTZ 12.5mg daily as above, f/u BMP 5-7 days. Stable from medical standpoint for dc Subjective Pt. is doing well overall today. Has mild pain in right knee. Denies chest pain, SOB, LE edema, urinary retention or constipation. Will be discharged to [place] today. Discussed HTN management -- pt. states she was recently diagnosed with HTN but did not have any issues with BP control in the past. Will need to follow up with PCP as outpatient. Review of Systems All systems reviewed & are unremarkable except as noted in HPI & below Constitutional: no fever, no chills, no fatigue and no weakness Respiratory: no cough and no dyspnea Cardiovascular: no chest pain, no palpitations, no syncope and no edema Gastrointestinal: no abdominal pain, no nausea, no vomiting and no constipation Genitourinary (Female): no dysuria and no difficulty urinating Musculoskeletal: + joint pain (Right knee ) Integumentary: no new lesions Neurologic: no headache(s) Physical Exam Vital Signs (Past 24 Hours): Last Vital Signs Temp 36.7 C 07/12/18 06:57 Pulse 74 07/12/18 06:57 Resp 18 07/12/18 06:57 BP 180/78 H 07/12/18 06:57 Pulse Ox 96 07/12/18 06:57 Physical Exam: General: Resting comfortably in no apparent distress HEENT: NC/AT; PERRLA with EOMI; [place] conjunctiva, MMM. Neck: Supple and nontender Cardiac: RRR Lungs: CTA bilaterally; No rhonchi, wheezing, or rales Abdomen: Bowel normoactive X 4; Nontender to palpation Extremities: Warm. No edema present. Right knee with dressing in place. Neuro: No focal weakness Skin: No rash Results & Data Laboratory Results 07/12/18 07/12/18 Range/Units 05:22 05:22 Hgb 9.9 L (12.0-16.0) g/dL Hct 30.2 L (37-47) % Sodium 139 (136-145) mmol/L Potassium 4.0 (3.5-5.1) mmol/L Chloride 106 (98-107) mmol/L Carbon Dioxide 29 (21-32) mmol/L Anion Gap 4.0 (3-11) BUN 15 (7-18) mg/dl Creatinine 0.74 (0.6-1.2) mg/dl Est Cr Clr Drug Dosing 80.9 ml/min Est GFR ( Amer) 95.8 Est GFR (Non-Af Amer) 82.7 BUN/Creatinine Ratio 20.6 H (10-20) Glucose 98 (70-99) mg/dl Calcium 8.7 (8.5-10.1) mg/dl TSH 2.000 (0.300-4.500) uIu/ml (1) Hypothyroidism Hypothyroidism type: acquired Qualified Code(s): E03.9 - Hypothyroidism, unspecified
--- NOTE | 2018-07-13 07:11 | Discharge Summary ---
Date of Service July 13, 2018 Admission HPI Per Admitting Provider 67 year old female with PMHx significant for high cholesterol, GERD, KATHRYN with CPAP, hypothyroidism with complaint of ongoing left knee pain. She has failed conservative measures including NSAIDs, cortisone injection, and most recently hyaluronic acid injections. Her pain is interfering with her daily activities. She would like to proceed with left knee replacement. Patient denies headaches, sweats, fevers, chills, double vision, blurred vision, cough, sore throat, dysphagia, chest pain, sob, wheezing, n/v/d/c, numbness, tingling, fatigue, urinary symptoms, mood disorders. ROS positive for left knee pain and stiffness. Admission Exam Per Admitting Provider Constitutional: well developed and well nourished; no acute distress Eyes: PERRL, conjunctivae normal, anicteric sclerae ENMT: external ear and nose normal, oropharynx normal Neck: trachea midline, no thyromegaly Respiratory: normal respiratory effort, lungs clear to auscultation Cardiovascular: RRR, no murmur, no edema Musculoskeletal: Left knee: ROM 0-130 with crepitus, tenderness to medial joint line, stable to valgus and varus stress Skin: no rashes, warm and dry Neurologic: patellar DTR's 2+ bilat, sensation intact Psychiatric: A+Ox3, euthymic affect Principal Diagnosis Left knee osteoarthritis, HTN Discharge Exam Constitutional well developed and well nourished; no acute distress Eyes PERRL, conjunctivae normal, anicteric sclerae ENMT external ear and nose normal, oropharynx normal Neck trachea midline, no thyromegaly Respiratory normal respiratory effort, lungs clear to auscultation Cardiovascular RRR, no murmur, no edema Skin no rashes, warm and dry Neurologic patellar DTR's 2+ bilat, sensation intact Psychiatric A+Ox3, euthymic affect Discharge Data Allergies Allergy/AdvReac Type Severity Reaction Status Date / Time No Known Allergies Allergy Verified 07/09/18 06:47 Consultations 07/09/18 11:52 Consult Case Management - Discharge Planning Routine 07/11/18 08:31 Consult Hospitalist Routine Procedures Performed Operation Date: 07/09/18 09:10 Actual Procedures p Left Total Knee Arthroplasty(Left) - Shaw Chi MD Ordered Studies 07/09/18 05:00 US - OR guided needle placemen Routine Hospital Course (1) Primary osteoarthritis of left knee: Patient presented for same day admission following left total knee arthroplasty on 07/09/18. She tolerated procedure well. The Patient had an uneventful hospital course. Post-operatively, her activity was progressed and well tolerated. They participated in PT with ambulation distance of 325 feet. ROM of operative knee reached 95 degrees. Labs remained stable- lowest hemogl obin recorded: 9.9. Patient's blood pressure was consistently elevated during her stay. She was recenlty started on BP medication prior to surgery for elevated blood pressure as an outpatient. Dr. Alberto Cowan of medical service was consulted for medical management during admission. Her Liniopril was increased to 10mg and HCTZ was added prior to her discharge. Pain controlled on oral medications. Please refer to daily progress notes and PT notes for complete details. After exam on 07/12/18, patient was felt to be stable for discharge to [facility]. Patient will f/u in the office in about 2 weeks for further evaluation including x-rays and incision check, sooner if having any issues or concerns. She was instructed to follow up with her PCP in regards to her hypertension. Lab Results 06/16/18 06/16/18 06/16/18 Range/Units 13:02 13:02 13:02 WBC 5.47 (4.8-10.8) K/uL RBC 4.04 L (4.2-5.4) M/uL Hgb 12.6 (12.0-16.0) g/dL Hct 38.5 (37-47) % MCV 95.3 (80-100) fL MCH 31.2 (25-34) pg MCHC 32.7 (32-36) g/dL RDW Std Deviation 44.6 (36.4-46.3) fL RDW Coeff of Lori 12.7 (11.5-14.5) % Plt Count 270 (130-400) K/uL MPV 10.8 H (7.4-10.4) fL Immature Gran % (Auto) 0.0 % Neut % (Auto) 47.9 % Lymph % (Auto) 40.0 % [place] % (Auto) 10.1 % Eos % (Auto) 1.6 % Baso % (Auto) 0.4 % Immature Gran # (Auto) 0.00 (0.00-0.02) K/uL Neut # (Auto) 2.62 (1.4-6.5) K/uL Lymph # (Auto) 2.19 (1.2-3.4) K/uL [place] # (Auto) 0.55 (0.11-0.59) K/uL Eos # (Auto) 0.09 (0-0.5) K/uL Baso # (Auto) 0.02 (0-0.2) K/uL PT 10.0 (9.0-12.0) Seconds INR 1.0 (0.9-1.1) APTT 24.2 (21.0-31.0) Seconds PTT Ratio 0.9 Sodium (136-145) mmol/L Potassium (3.5-5.1) mmol/L Chloride (98-107) mmol/L Carbon Dioxide (21-32) mmol/L Anion Gap (3-11) BUN (7-18) mg/dl Creatinine (0.6-1.2) mg/dl Est Cr Clr Drug Dosing ml/min Est GFR ( Amer) Est GFR (Non-Af Amer) BUN/Creatinine Ratio (10-20) Glucose (70-99) mg/dl Estimat Average Glucose 126 mg/dl Hemoglobin A1c 6.0 H (4.5-5.6) % Calcium (8.5-10.1) mg/dl Albumin (3.4-5.0) gm/dl TSH (0.300-4.500) uIu/ml Urine Color Urine Appearance (Clear) Urine pH (4.5-7.5) Ur Specific [place] (1.000-1.030) Urine Protein (Negative) Urine Glucose (UA) (Negative) Urine Ketones (Negative) Urine Blood (Negative) Urine Nitrite (Negative) Urine Bilirubin (Negative) Urine Urobilinogen (Negative) Ur Leukocyte Esterase (Negative) Urine WBC (Auto) (0-5) /hpf Urine RBC (Auto) (0-4) /hpf U Hyaline Cast (Auto) (0-5) /lpf U Epithel Cells (Auto) (0-5) /lpf Urine Bacteria (Auto) (Negative) Blood Type Antibody Screen 06/16/18 06/16/18 06/16/18 Range/Units 13:02 13:10 Unknown WBC (4.8-10.8) K/uL RBC (4.2-5.4) M/uL Hgb (12.0-16.0) g/dL Hct (37-47) % MCV (80-100) fL MCH (25-34) pg MCHC (32-36) g/dL RDW Std Deviation (36.4-46.3) fL RDW Coeff of Lori (11.5-14.5) % Plt Count (130-400) K/uL MPV (7.4-10.4) fL Immature Gran % (Auto) % Neut % (Auto) % Lymph % (Auto) % [place] % (Auto) % Eos % (Auto) % Baso % (Auto) % Immature Gran # (Auto) (0.00-0.02) K/uL Neut # (Auto) (1.4-6.5) K/uL Lymph # (Auto) (1.2-3.4) K/uL [place] # (Auto) (0.11-0.59) K/uL Eos # (Auto) (0-0.5) K/uL Baso # (Auto) (0-0.2) K/uL PT (9.0-12.0) Seconds INR (0.9-1.1) APTT (21.0-31.0) Seconds PTT Ratio Sodium 139 (136-145) mmol/L Potassium 4.4 (3.5-5.1) mmol/L Chloride 107 (98-107) mmol/L Carbon Dioxide 27 (21-32) mmol/L Anion Gap 5.0 (3-11) BUN 16 (7-18) mg/dl Creatinine 0.76 (0.6-1.2) mg/dl Est Cr Clr Drug Dosing 78.7 ml/min Est GFR ( Amer) 92.8 Est GFR (Non-Af Amer) 80.0 BUN/Creatinine Ratio 20.9 H (10-20) Glucose 119 H (70-99) mg/dl Estimat Average Glucose mg/dl Hemoglobin A1c (4.5-5.6) % Calcium 9.2 (8.5-10.1) mg/dl Albumin 3.6 (3.4-5.0) gm/dl TSH (0.300-4.500) uIu/ml Urine Color Yellow Urine Appearance Clear (Clear) Urine pH 6.0 (4.5-7.5) Ur Specific [place] 1.015 (1.000-1.030) Urine Protein Negative (Negative) Urine Glucose (UA) Negative (Negative) Urine Ketones Negative (Negative) Urine Blood Negative (Negative) Urine Nitrite Negative (Negative) Urine Bilirubin Negative (Negative) Urine Urobilinogen Negative (Negative) Ur Leukocyte Esterase Trace H (Negative) Urine WBC (Auto) 5-10 H (0-5) /hpf Urine RBC (Auto) 0-4 (0-4) /hpf U Hyaline Cast (Auto) 0 (0-5) /lpf U Epithel Cells (Auto) >30 H (0-5) /lpf Urine Bacteria (Auto) Negative (Negative) Blood Type A Positive Antibody Screen NEGATIVE 07/10/18 07/10/18 07/12/18 Range/Units 05:39 05:39 05:22 WBC 16.01 H (4.8-10.8) K/uL RBC 3.34 L (4.2-5.4) M/uL Hgb 10.6 L 9.9 L (12.0-16.0) g/dL Hct 31.5 L 30.2 L (37-47) % MCV 94.3 (80-100) fL MCH 31.7 (25-34) pg MCHC 33.7 (32-36) g/dL RDW Std Deviation 43.6 (36.4-46.3) fL RDW Coeff of Lori 12.6 (11.5-14.5) % Plt Count 236 (130-400) K/uL MPV 10.0 (7.4-10.4) fL Immature Gran % (Auto) % Neut % (Auto) % Lymph % (Auto) % [place] % (Auto) % Eos % (Auto) % Baso % (Auto) % Immature Gran # (Auto) (0.00-0.02) K/uL Neut # (Auto) (1.4-6.5) K/uL Lymph # (Auto) (1.2-3.4) K/uL [place] # (Auto) (0.11-0.59) K/uL Eos # (Auto) (0-0.5) K/uL Baso # (Auto) (0-0.2) K/uL PT (9.0-12.0) Seconds INR (0.9-1.1) APTT (21.0-31.0) Seconds PTT Ratio Sodium 139 (136-145) mmol/L Potassium 3.9 (3.5-5.1) mmol/L Chloride 108 H (98-107) mmol/L Carbon Dioxide 25 (21-32) mmol/L Anion Gap 6.0 (3-11) BUN 22 H (7-18) mg/dl Creatinine 0.72 (0.6-1.2) mg/dl Est Cr Clr Drug Dosing 83.1 ml/min Est GFR ( Amer) 99.0 Est GFR (Non-Af Amer) 85.4 BUN/Creatinine Ratio 30.4 H (10-20) Glucose 135 H (70-99) mg/dl Estimat Average Glucose mg/dl Hemoglobin A1c (4.5-5.6) % Calcium 8.9 (8.5-10.1) mg/dl Albumin (3.4-5.0) gm/dl TSH (0.300-4.500) uIu/ml Urine Color Urine Appearance (Clear) Urine pH (4.5-7.5) Ur Specific [place] (1.000-1.030) Urine Protein (Negative) Urine Glucose (UA) (Negative) Urine Ketones (Negative) Urine Blood (Negative) Urine Nitrite (Negative) Urine Bilirubin (Negative) Urine Urobilinogen (Negative) Ur Leukocyte Esterase (Negative) Urine WBC (Auto) (0-5) /hpf Urine RBC (Auto) (0-4) /hpf U Hyaline Cast (Auto) (0-5) /lpf U Epithel Cells (Auto) (0-5) /lpf Urine Bacteria (Auto) (Negative) Blood Type Antibody Screen 07/12/18 Range/Units 05:22 WBC (4.8-10.8) K/uL RBC (4.2-5.4) M/uL Hgb (12.0-16.0) g/dL Hct (37-47) % MCV (80-100) fL MCH (25-34) pg MCHC (32-36) g/dL RDW Std Deviation (36.4-46.3) fL RDW Coeff of Lori (11.5-14.5) % Plt Count (130-400) K/uL MPV (7.4-10.4) fL Immature Gran % (Auto) % Neut % (Auto) % Lymph % (Auto) % [place] % (Auto) % Eos % (Auto) % Baso % (Auto) % Immature Gran # (Auto) (0.00-0.02) K/uL Neut # (Auto) (1.4-6.5) K/uL Lymph # (Auto) (1.2-3.4) K/uL [place] # (Auto) (0.11-0.59) K/uL Eos # (Auto) (0-0.5) K/uL Baso # (Auto) (0-0.2) K/uL PT (9.0-12.0) Seconds INR (0.9-1.1) APTT (21.0-31.0) Seconds PTT Ratio Sodium 139 (136-145) mmol/L Potassium 4.0 (3.5-5.1) mmol/L Chloride 106 (98-107) mmol/L Carbon Dioxide 29 (21-32) mmol/L Anion Gap 4.0 (3-11) BUN 15 (7-18) mg/dl Creatinine 0.74 (0.6-1.2) mg/dl Est Cr Clr Drug Dosing 80.9 ml/min Est GFR ( Amer) 95.8 Est GFR (Non-Af Amer) 82.7 BUN/Creatinine Ratio 20.6 H (10-20) Glucose 98 (70-99) mg/dl Estimat Average Glucose mg/dl Hemoglobin A1c (4.5-5.6) % Calcium 8.7 (8.5-10.1) mg/dl Albumin (3.4-5.0) gm/dl TSH 2.000 (0.300-4.500) uIu/ml Urine Color Urine Appearance (Clear) Urine pH (4.5-7.5) Ur Specific [place] (1.000-1.030) Urine Protein (Negative) Urine Glucose (UA) (Negative) Urine Ketones (Negative) Urine Blood (Negative) Urine Nitrite (Negative) Urine Bilirubin (Negative) Urine Urobilinogen (Negative) Ur Leukocyte Esterase (Negative) Urine WBC (Auto) (0-5) /hpf Urine RBC (Auto) (0-4) /hpf U Hyaline Cast (Auto) (0-5) /lpf U Epithel Cells (Auto) (0-5) /lpf Urine Bacteria (Auto) (Negative) Blood Type Antibody Screen Total Time Total Time Spent Total Time Spent (In Minutes): 20 Discharge Plan Discharge Items Patient Disposition: Transfer Snf Fac Reason For Visit: Left Knee Osteoarthritis Discharge Diagnosis: Left knee osteoarthritis Discharge Goals: Decrease discomfort Activity: Per 'Additional Instructions' section Non-emergency contact: Surgeon Call non-emergency contact if: you have any medication questions, your pain is not controlled, your pain is concerning for you, you have a fever, your temperature is above 101.5, your wound has increased redness and your wound has increased drainage Follow-up/Referrals: Jenise Mackay MD [Primary Care Provider] - Diet: Regular Addtl Provider Instructions: 1. Hypertension * Continue Lisinopril 10 mg daily and HCTZ 12.5 mg daily. * Patient will need to follow up with her primary care provider following discharge to discuss blood pressure management. * Please monitor BMP in 5-7 days to monitor renal function in the setting of a newly added thiazide diuretic. ACTIVITY RECOMMENDATIONS: SELF CARE INSTRUCTIONS AFTER TOTAL KNEE REPLACEMENT A. You may need to continue a physical therapy program after discharge from the hospital. There are several options available to you. Your doctor will assist you in selecting the best one for you. 1. An out-patient facility 2 to 3 times a week for therapy or home therapy. 2. Continue working on all exercises taught to you in the hospital. Your goals should be to increase bending of your knee to 90 degrees and beyond and to fully straighten your knee. B. You may progress at your own pace from walking with a walker or crutches to a cane; then to no assistive devices. C. Make walking a part of your daily routine. Be up as much as comfortable with rest periods throughout the day. Rest with leg elevation is very important. Use the ice wrap frequently for the first 3-4 weeks. D. There are no restrictions on activities. You may ride in a car, shop, participate in play therapist and all social activities. E. Wear the long elastic stockings (SUE hose) 20 hours a day for 2 weeks after surgery. They can be removed several times a day for laundering and for a bath. F. You may shower, no tub baths until cleared by your doctor. SPECIAL CARE INSTRUCTIONS: VERY IMPORTANT TO READ AND REVIEW A. There are a few signs you need to watch for after you are home. Call [facility] if you notice any of the followin. Increased severe knee pain. Some pain is expected especially when you exercise. 2. Increased swelling in your leg or knee; pain or swelling of the calf muscle in either lower leg. 3. Any fluid drainage from the incision. 4. Shortness of breath or chest pain. B. Please call [facility] at if you have any concerns or questions about your operation or recovery. The doctor or his nurse will return your call promptly. C. You must take antibiotics before dental work, bladder, bowel or other giron rgery. Your doctor will provide you with a permanent care to carry describing this precaution. IMPORTANT: * REMEMBER TO TAKE ASPIRIN, 81 MG, TWICE DAILY FOR 4 WEEKS UNLESS OTHERWISE DIRECTED. THIS IS YOUR BLOOD THINNER. * HIGH RISK PATIENTS MAY BE PRESCRIBED A STRONGER BLOOD THINNER. THIS WILL BE PROVIDED AT DISCHARGE. * CALL IF INCREASED PAIN, REDNESS, DRAINAGE OR FEVER GREATER THAT 101. * WEAR SUE HOSE 20 HOURS PER DAY FOR 2 WEEKS. This is a large suction dressing covering your incision. This will help pull any excess drainage from the wound and allow your incision to heal properly. You may shower with this if you can keep the unit outside of the shower. If any bleeding or leakage is noted please call your doctor's office. This will remain on your incision for 7 days and then should be removed. This can be done yourself or by the home nursing staff if applicable. The entire unit is disposable once removed. Once removed, keep incision clean and dry. If redness or drainage is noted, please call your surgeon. FOLLOW UP VISIT: If appointment is not already scheduled: Please call [facility] to make a follow-up appointment for 2 weeks after your surgery at . Prescriptions: New celecoxib [Celebrex] 200 mg Capsule 200 mg PO BID Qty: 60 RF: 0 aspirin [Ecotrin Low Strength] 81 mg Tablet,Delayed Release (Dr/Ec) 81 mg PO BID Qty: 60 RF: 0 acetaminophen [Pain Reliever] 500 mg Tablet 1,000 mg PO Q8 21 Days Qty: 60 RF: 0 lisinopril [Zestril] 10 mg Tablet 10 mg PO QAM Qty: 30 RF: 0 oxycodone 5 mg capsule 5 - 10 mg PO .Q4H-6H MDD 6 Qty: 30 RF: 0 hydrochlorothiazide 12.5 mg capsule 12.5 mg PO DAILY Qty: 1 RF: 0 Continued multivitamin Tablet 1 tab PO QAM RF: 0 atorvastatin 10 mg Tablet 10 mg PO QAM RF: 0 omeprazole 40 mg Capsule,Delayed Release(Dr/Ec) 40 mg PO QAM RF: 0 levothyroxine 125 mcg Tablet 125 mcg PO QAM RF: 0 escitalopram oxalate 10 mg Tablet 10 mg PO QAM RF: 0 calcium carbonate-vitamin D3 [Calcium 500 + D] 500 mg(1,250mg) -200 unit Tablet 1 tab PO BID RF: 0 Discontinued meloxicam 15 mg Tablet 15 mg PO QAM PRN (Reason: Pain) RF: 0 lisinopril 5 mg Tablet 5 mg PO QAM RF: 0 Stand-Alone Forms: [facility], Opioid Pain Management Discharge Orders: Discharge Order (Routine); Ordered 07/12/18 Ordered By: Lupillo Dukes Skilled Items Patient informed of condition?: Yes DNR: No Discharge Level of Care: Skilled Communicable Disease: No Discharge Prognosis: Improving Admission Data Admit Date/Time: 07/09/18 11:52 Attending Provider: Shaw Chi Admit Provider: Shaw Chi Primary Care Provider: Jenise Mackay Other Providers: Mary Roman Service: Surgical Services Other Interventions: Discharge Summary Assessment (RN) Last Done: 07/12/18 11:12 DC Date/Time DO NOT enter until pt leaves facility: 07/12/18 13:05
--- NOTE | 2018-07-13 10:12 | Discharge Summary ---
Date of Service July 14, 2018 Admission HPI Per Admitting Provider 67 year old female with PMHx significant for high cholesterol, GERD, KATHRYN with CPAP, hypothyroidism with complaint of ongoing left knee pain. She has failed conservative measures including NSAIDs, cortisone injection, and most recently hyaluronic acid injections. Her pain is interfering with her daily activities. She would like to proceed with left knee replacement. Patient denies headaches, sweats, fevers, chills, double vision, blurred vision, cough, sore throat, dysphagia, chest pain, sob, wheezing, n/v/d/c, numbness, tingling, fatigue, urinary symptoms, mood disorders. ROS positive for left knee pain and stiffness. Discharge Data Consultations 07/09/18 11:52 Consult Case Management - Discharge Planning Routine 07/11/18 08:31 Consult Hospitalist Routine Procedures Performed Operation Date: 07/09/18 09:10 Actual Procedures p Left Total Knee Arthroplasty(Left) - Shaw Chi MD
== END 2018-07-12 13:05 | DRG 470 ==
LOC: ASU 06:25 → 3E 11:52